=== PATIENT | male | born 1965 | race African-American/Black ===

== ENCOUNTER 2017-08-28 09:41 | Inpatient (IN) | payer MEDICAID ==
--- NOTE | 2017-08-28 10:01 | ED Physician Chart ---
ED Chief Complaint/HPI - Patient Information Date Seen:: 08/28/17 Time Seen:: 10:00 Chief Complaint:: Seizure History of Present Illness:: 52 yo male was brought from [facility] to ER for evaluation of multiple seizures 13 times this morning. Patient received Versed 5mg IM prior to arrival. Patient was obtunded and non-verbal at ER. ED Review of Systems - Review of Systems Other: Review of systems was not obtainable as patient was obtunded and non- verbal. ED Past Medical History - Past Medical History Past Medical History: HTN, PUD/GERD, Seizures, Other (Peripheral vascular disease, blindness, cataracts, ESBL, MRSA, sleep disorder) Social History: Non Smoker, No Alcohol, No Drug Use Surgical History: Pacemaker Psychiatricy History: Depression ED Physical Exam - Physical Examination Other Gen/Cons comments:: Obtunded Head: Atraumatic Eyes: PERRL Skin: No ecchymosis ENMT: Nasal exam nl Neck: No nuchal rigidity Respiratory: No Wheeze/Rhonchi/Rales Cardio Vascular: RRR, No murmur, gallop, rubs, NL S1 S2 GI: No tenderness/rebounding/guarding Extremities: No edema Other Neuro/Psych comments:: Bilateral patellar reflex 2+ ED Labs/Radiology/EKG Results - Lab Results Results: Laboratory Last Values WBC 7.2 Th/cmm (4.8-10.8) 08/28/17 10:40 RBC 5.17 Mil/cmm (4.30-5.70) 08/28/17 10:40 Hgb 15.4 gm/dL (12-16) 08/28/17 10:40 Hct 46.6 % (41.0-60) 08/28/17 10:40 MCV 90.1 fl (80-99) 08/28/17 10:40 MCH 29.7 pg (26.0-30.0) 08/28/17 10:40 MCHC Differential 33.0 pg (28.0-36.0) 08/28/17 10:40 RDW 13.7 % (11.5-20.0) 08/28/17 10:40 Plt Count 142 Th/cmm (150-400) L 08/28/17 10:40 MPV 8.2 fl 08/28/17 10:40 Neutrophils % 75.2 % (40.0-80.0) 08/28/17 10:40 Lymphocytes % 9.1 % (20.0-50.0) L 08/28/17 10:40 Monocytes % 11.8 % (2.0-10.0) H 08/28/17 10:40 Eosinophils % 3.9 % (0.0-5.0) 08/28/17 10:40 Basophils % 0.0 % (0.0-2.0) 08/28/17 10:40 PT 12.7 SECONDS (9.5-11.5) H 08/28/17 10:40 INR 1.21 (0.5-1.4) 08/28/17 10:40 PTT (Actin FS) 23.6 SECONDS (26.0-38.0) L 08/28/17 10:40 D-Dimer 251 ng/mL (100-400) 08/28/17 10:40 Sodium 137 mEq/L (136-145) 08/28/17 10:40 Potassium 3.3 mEq/L (3.5-5.1) L 08/28/17 10:40 Chloride 110 mEq/L (98-107) H 08/28/17 10:40 Carbon Dioxide 20.2 mEq/L (21.0-31.0) L 08/28/17 10:40 Anion Gap 10.1 (7.0-16.0) 08/28/17 10:40 BUN 13 mg/dL (7-25) 08/28/17 10:40 Creatinine 1.0 mg/dL (0.7-1.3) 08/28/17 10:40 Est GFR ( Amer) > 60.0 ml/min (>90) 08/28/17 10:40 Est GFR (Non-Af Amer) > 60.0 ml/min 08/28/17 10:40 BUN/Creatinine Ratio 13.0 08/28/17 10:40 Glucose 115 mg/dL (70-105) H 08/28/17 10:40 Calcium 9.5 mg/dL (8.6-10.3) 08/28/17 10:40 Total Bilirubin 0.3 mg/dL (0.3-1.0) 08/28/17 10:40 AST 17 U/L (13-39) 08/28/17 10:40 ALT 29 U/L (7-52) 08/28/17 10:40 Alkaline Phosphatase 140 U/L (34-104) H 08/28/17 10:40 Troponin I 0.01 ng/mL (0.01-0.05) 08/28/17 10:40 B-Natriuretic Peptide 17.3 pg/mL (5.0-100.0) 08/28/17 10:40 Total Protein 7.8 gm/dL (6.0-8.3) 08/28/17 10:40 Albumin 4.3 gm/dL (4.2-5.5) 08/28/17 10:40 Globulin 3.5 gm/dL 08/28/17 10:40 Albumin/Globulin Ratio 1.2 (1.0-1.8) 08/28/17 10:40 Lipase 42 U/L (11-82) 08/28/17 10:40 Phenytoin < 2.5 ug/ml (10.0-20.0) L 08/28/17 10:48 Valproic Acid < 10.0 ug/mL (50.0-100.0) L 08/28/17 10:40 - Radiology Results Results: CXR: no focal consolidation, pacemaker CT head: No acute abnormalities. Left frontal encephalomalacia - EKG Interpretations EKG Time:: 10:09 Rate & Rhythm: 83 bpm, sinus rhythm [place]: normal P axis Intervals: normal intervals Comments:: non-specific ST changes ED Assessment - Assessment General Assessment: Seizures Hypokalemia Assessment/Comments:: CBC, CMP, UA CXR, EKG CT head KCL 20 mEq IV NS 1L IV bolus Admit to telemetry ED Septic Shock - . Is Septic Shock (SBP<90, OR Lactate>4 mmol\L) present?: No ED Reassessment (Disposition) - Reassessment Reassessment Condition:: Improved - Patient Disposition Discharge/Transfer:: Acute Care w/in this hosp Admitting Medical Physician:: David Davila ED Discharge Plan - Patient Disposition Admit/Discharge/Transfer: Acute Care w/in this hosp Condition at Disposition: Stable
[2017-08-28 10:47] LABS: EOSINOPHILE ABSOLUTE 0.3 Th/cmm (0.1-0.4); MEAN PLATELET VOLUME 8.2 fl
[2017-08-28 10:50] LABS: % EOSINOPHILS 3.9 % (0.0-5.0); % LYMPHOCYTES 9.1 % (20.0-50.0); % MONOCYTES 11.8 % (2.0-10.0); % NEUTROPHILS 75.2 % (40.0-80.0); HEMATOCRIT 46.6 % (41.0-60); HEMOGLOBIN 15.4 gm/dL (12-16); LYMPHOCYTE ABSOLUTE 0.7 Th/cmm (1.5-3.0); MEAN CELL VOLUME 90.1 fl (80-99); MEAN CORPUSCULAR HEMOGLOBIN 29.7 pg (26.0-30.0); MONOCYTE ABSOLUTE 0.8 Th/cmm (0.3-1.0); NEUTROPHILE ABSOLUTE 5.4 Th/cmm (1.8-8.0); PLATELET COUNT 142 Th/cmm (150-400); RED BLOOD COUNT 5.17 Mil/cmm (4.30-5.70); RED CELL DISTRIBUTION WIDTH 13.7 % (11.5-20.0); WHITE BLOOD COUNT 7.2 Th/cmm (4.8-10.8)
[2017-08-28 11:03] LABS: INR 1.21 (0.5-1.4); PROTHROMBIN TIME (TEST) 12.7 SECONDS (9.5-11.5)
[2017-08-28 11:09] LABS: ALB/GLOB RATIO 1.2 (1.0-1.8); ALBUMIN 4.3 gm/dL (4.2-5.5); ALKALINE PHOSPHATASE 140 U/L (34-104); ANION GAP 10.1 (7.0-16.0); BILIRUBIN,TOTAL 0.3 mg/dL (0.3-1.0); BUN - UREA NITROGEN 13 mg/dL (7-25); CALCIUM SERUM 9.5 mg/dL (8.6-10.3); CARBON DIOXIDE 20.2 mEq/L (21.0-31.0); CHLORIDE 110 mEq/L (98-107); GFR AFRICAN-AMERICAN > 60.0 ml/min (>90); GFR NON AFRICAN-AMERICAN > 60.0 ml/min; GLUCOSE 115 mg/dL (70-105); LIPASE 42 U/L (11-82); POTASSIUM SERUM 3.3 mEq/L (3.5-5.1); SGOT 17 U/L (13-39); SGPT/ALT 29 U/L (7-52); SODIUM SERUM 137 mEq/L (136-145); TOTAL PROTEIN,SERUM 7.8 gm/dL (6.0-8.3)
[2017-08-28] MEDS ORDERED: Sodium Chloride 0.9% 1,000 ML IV ONE (11:24)
[2017-08-28] MEDS ORDERED: KCL 20mEq/100mL Premix 20 MEQ/100 ML PIGGYBACK IV ONE ×2 (11:28→11:41)
--- NOTE | 2017-08-28 11:37 | Diagnostic Imaging Report ---
Portable chest x-ray History: Shortness of breath Allowing for portable technique the heart size is normal. Cardiac electrode lead wires project over the right atrium and right ventricle. No focal pulmonary parenchymal processes. No hilar or mediastinal abnormalities. Impression: No acute abnormalities.
--- NOTE | 2017-08-28 11:37 | Diagnostic Imaging Report ---
CT scan of the brain without intravenous contrast HISTORY: Seizure. Total DLP equals 714 CTDI equals 37.6 Axial sections were obtained from base of skull the vertex. Prior exams are not available for comparison. The exam demonstrates asymmetric abnormal changes involving the contours of the posterior horns of lateral ventricles associated with volume loss. Symmetric extra-axial CSF extends from the margins of the occipital horns through the right and left temporal areas. Findings consistent with changes of porencephaly. 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 Extensive calcification noted along the falx. Prosthetic left eye. IMPRESSION: 1. Chronic changes as described above. 2. No definite acute abnormalities
[2017-08-28] MEDS ORDERED: Magnesium Hydroxide (MOM) 30 mL UDC PO PRN (12:46)
[2017-08-28] MEDS ORDERED: Fleet Enema 135 mL RC PRN ×2 (12:46→14:15)
--- NOTE | 2017-08-28 14:05 | History & Physical ---
ADMIT DATE: 08/28/2017 INTERNAL MEDICINE HISTORY AND PHYSICAL CHIEF COMPLAINT: Uncontrolled seizures. HISTORY OF PRESENT ILLNESS: This is a 52-year-old male with a history of mental retardation, seizure disorder, hypertension, GERD, admitted from a nursing facility secondary to uncontrolled seizure x 13. The patient was given Versed by paramedics and brought to the Emergency Room. The patient is sleepy, unable to provide a meaningful history and review of systems. PAST MEDICAL HISTORY: As mentioned in history of present illness. PAST SURGICAL HISTORY: Status post pacemaker, left eye surgery. ALLERGIES: No known drug allergies. MEDICATIONS: Calcium, Norvasc, Colace, Megace, Zoloft, Topamax, Keppra. FAMILY HISTORY: Noncontributory. SOCIAL HISTORY: The patient is a long-term patient requiring 24-hour total care. REVIEW OF SYSTEMS: This is limited secondary to the patient's current mental status. We will try to obtain more detailed review of systems today by talking to the family members. We will also try to get more information from the casework supervisor from the [facility] as well as from nursing staff at [facility] [phone]. PHYSICAL EXAMINATION: VITAL SIGNS: Blood pressure 120/68, respirations 18, pulse 126, temperature 98.3. GENERAL: Elderly male, appears chronically ill. NECK: Supple. No mass. LUNGS: Equal breath sounds, a few rhonchi. HEART: Regular rate and rhythm without systolic ejection murmur. ABDOMEN: Soft, globular. EXTREMITIES: Positive excoriations. NEUROLOGIC: Limited. LABORATORY DATA: WBC 7, hemoglobin 15, platelets 142. INR 1.2, PTT 23. Sodium 137, potassium 4.2, BUN 34, creatinine 1.0, blood sugar 115. Keppra level is pending. ASSESSMENT AND PLAN: Uncontrolled seizure, hypertension, mental retardation, debilitation, bedridden, hypokalemia. PLAN: Continue the patient ____ medication. Continue on IV push Ativan on an as needed basis. We will refer the patient to Neurology. We will perform swallow evaluation. We will place the patient on aspiration precautions. We will reconcile the patient's medication. The patient is also on Topamax. Continue with current care with follow consult and recommendations. JOB# [id number]
[2017-08-28] MEDS: D5-0.45NS 1,000 ML IV SCH (18:38)
[2017-08-28] MEDS: Docusate Sodium 100 mg/10 mL UD PO SCH ×2 (18:57→20:15)
[2017-08-28] MEDS: Levetiracetam 500 mg/5mL 5mL UDSyr *for ORAL USE ONLY PO SCH (20:15)
[2017-08-29] MEDS: D5-0.45NS 1,000 ML IV SCH ×2 (06:11→18:12)
[2017-08-29] MEDS: Pantoprazole 40 mg/Packet PO SCH (06:49)
[2017-08-29 07:26] LABS: HEMOGLOBIN 14.5 gm/dL (12-16); MANUAL DIFF REQUIRED? YES; RED CELL DISTRIBUTION WIDTH 13.6 % (11.5-20.0)
[2017-08-29 07:41] LABS: HEMATOCRIT 45.1 % (41.0-60); MEAN CELL VOLUME 90.7 fl (80-99); MEAN CORPUSCULAR HEMOGLOBIN 29.3 pg (26.0-30.0); MEAN CORPUSCULAR HGB CONC 32.3 pg (28.0-36.0); MEAN PLATELET VOLUME 8.2 fl; PLATELET COUNT 158 Th/cmm (150-400); RED BLOOD COUNT 4.97 Mil/cmm (4.30-5.70); WHITE BLOOD COUNT 5.2 Th/cmm (4.8-10.8)
[2017-08-29 07:58] LABS: BAND NEUTROPHILE 0 % (0-10); BASOPHIL 0 % (0-3); EOSINOPHIL 7 % (0-5); LYMPHOCYTE 27 % (20-50); MONOCYTE 16 % (2-10); NEUTROPHILS 50 % (40-80); TOTAL CELLS COUNTED 100
[2017-08-29] MEDS: Multivitamin Tab PO SCH (08:24)
[2017-08-29] MEDS: Levetiracetam 500 mg/5mL 5mL UDSyr *for ORAL USE ONLY PO SCH ×2 (08:25→20:27)
[2017-08-29] MEDS: Docusate Sodium 100 mg/10 mL UD PO SCH ×2 (08:25→17:05)
[2017-08-29 09:55] LABS: ANION GAP 9.1 (7.0-16.0); BUN - UREA NITROGEN 8 mg/dL (7-25); CALCIUM SERUM 9.2 mg/dL (8.6-10.3); CARBON DIOXIDE 19.1 mEq/L (21.0-31.0); CHLORIDE 113 mEq/L (98-107); CREATININE - SERUM 0.8 mg/dL (0.7-1.3); GFR AFRICAN-AMERICAN > 60.0 ml/min (>90); GFR NON AFRICAN-AMERICAN > 60.0 ml/min; GLUCOSE 106 mg/dL (70-105); POTASSIUM SERUM 3.2 mEq/L (3.5-5.1); SODIUM SERUM 138 mEq/L (136-145)
--- NOTE | 2017-08-29 14:14 | Internal Medicine Prog Note ---
Internal Medicine Subjective - Subjective Service Date: 08/29/17 (left eye noted with yellowish drainage) Patient seen and examined:: with staff Patient is:: awake Per staff patient has:: tolerating meds Internal Medicine Objective - Results Result Diagrams: 08/29/17 07:15 08/29/17 09:19 Recent Labs: Laboratory Last Values WBC 5.2 Th/cmm (4.8-10.8) 08/29/17 07:15 RBC 4.97 Mil/cmm (4.30-5.70) 08/29/17 07:15 Hgb 14.5 gm/dL (12-16) 08/29/17 07:15 Hct 45.1 % (41.0-60) 08/29/17 07:15 MCV 90.7 fl (80-99) 08/29/17 07:15 MCH 29.3 pg (26.0-30.0) 08/29/17 07:15 MCHC Differential 32.3 pg (28.0-36.0) 08/29/17 07:15 RDW 13.6 % (11.5-20.0) 08/29/17 07:15 Plt Count 158 Th/cmm (150-400) 08/29/17 07:15 MPV 8.2 fl 08/29/17 07:15 Neutrophils % 75.2 % (40.0-80.0) 08/28/17 10:40 Band Neutrophils % 0 % (0-10) 08/29/17 07:15 Lymphocytes % 9.1 % (20.0-50.0) L 08/28/17 10:40 Monocytes % 11.8 % (2.0-10.0) H 08/28/17 10:40 Eosinophils % 3.9 % (0.0-5.0) 08/28/17 10:40 Basophils % 0.0 % (0.0-2.0) 08/28/17 10:40 Neutrophils (Manual) 50 % (40-80) 08/29/17 07:15 Lymphocytes 27 % (20-50) 08/29/17 07:15 Monocytes 16 % (2-10) H 08/29/17 07:15 Eosinophils 7 % (0-5) H 08/29/17 07:15 Basophils 0 % (0-3) 08/29/17 07:15 PT 12.7 SECONDS (9.5-11.5) H 08/28/17 10:40 INR 1.21 (0.5-1.4) 08/28/17 10:40 PTT (Actin FS) 23.6 SECONDS (26.0-38.0) L 08/28/17 10:40 D-Dimer 251 ng/mL (100-400) 08/28/17 10:40 Sodium 138 mEq/L (136-145) 08/29/17 09:19 Potassium 3.2 mEq/L (3.5-5.1) L 08/29/17 09:19 Chloride 113 mEq/L (98-107) H 08/29/17 09:19 Carbon Dioxide 19.1 mEq/L (21.0-31.0) L 08/29/17 09:19 Anion Gap 9.1 (7.0-16.0) 08/29/17 09:19 BUN 8 mg/dL (7-25) 08/29/17 09:19 Creatinine 0.8 mg/dL (0.7-1.3) 08/29/17 09:19 Est GFR ( Amer) > 60.0 ml/min (>90) 08/29/17 09:19 Est GFR (Non-Af Amer) > 60.0 ml/min 08/29/17 09:19 BUN/Creatinine Ratio 10.0 08/29/17 09:19 Glucose 106 mg/dL (70-105) H 08/29/17 09:19 Calcium 9.2 mg/dL (8.6-10.3) 08/29/17 09:19 Magnesium 2.0 mg/dL (1.9-2.7) 08/29/17 09:19 Total Bilirubin 0.3 mg/dL (0.3-1.0) 08/28/17 10:40 AST 17 U/L (13-39) 08/28/17 10:40 ALT 29 U/L (7-52) 08/28/17 10:40 Alkaline Phosphatase 140 U/L (34-104) H 08/28/17 10:40 Ammonia 55 umol/L (16-53) H 08/29/17 09:19 Troponin I 0.01 ng/mL (0.01-0.05) 08/28/17 10:40 B-Natriuretic Peptide 17.3 pg/mL (5.0-100.0) 08/28/17 10:40 Total Protein 7.8 gm/dL (6.0-8.3) 08/28/17 10:40 Albumin 4.3 gm/dL (4.2-5.5) 08/28/17 10:40 Globulin 3.5 gm/dL 08/28/17 10:40 Albumin/Globulin Ratio 1.2 (1.0-1.8) 08/28/17 10:40 Lipase 42 U/L (11-82) 08/28/17 10:40 Phenytoin < 2.5 ug/ml (10.0-20.0) L 08/28/17 10:48 Valproic Acid < 10.0 ug/mL (50.0-100.0) L 08/28/17 10:40 - Physical Exam Vitals and I&O: Vital Signs Temp 96.3 F 08/29/17 11:35 Pulse 64 08/29/17 11:35 Resp 18 08/29/17 11:35 BP 120/65 08/29/17 11:35 Pulse Ox 98 08/29/17 11:35 Intake & Output 08/28/17 08/29/17 08/29/17 18:59 06:59 18:59 Intake Total 1100 924 Balance 1100 924 Weight (lbs) 140 lb 140 lb Intake: Intake, IV Amount 1100 924 D5-0.45NS 1,000 ml @ 80 924 mls/hr IV .[id number] [facility] Rx #:[id number] KCL 20mEq/100mL Premix 20 100 meq In 100 ml @ 50 mls/ hr IV X1 ONE Rx#: [id number] Other: # Voids 2 # Bowel Movements 1 Weight Source Bedscale Bedscale Active Medications: Current Medications Acetaminophen (Tylenol) 650 mg PO Q4HR PRN PRN Reason: Pain (Mild) Stop: 10/27/17 12:45 Amlodipine Besylate (Norvasc) 10 mg PO DAILY [facility] Stop: 10/28/17 08:59 Last Admin: 08/29/17 08:24 Dose: 10 mg Bisacodyl (Dulcolax 10 Mg Supp) 10 mg RC Q3D PRN PRN Reason: Constipation Stop: 10/28/17 08:59 Calcium Carbonate (Os-Isaac) 500 mg PO BID [facility] Stop: 10/27/17 16:59 Last Admin: 08/29/17 08:24 Dose: 500 mg Docusate Sodium (Colace) 100 mg PO BID [facility] Stop: 10/27/17 16:59 Last Admin: 08/29/17 08:25 Dose: 100 mg Heparin Sodium (Porcine) (Heparin) 5,000 units SUBQ Q12HR ANNA Stop: 10/27/17 20:59 Last Admin: 08/29/17 08:31 Dose: 5,000 units Hydralazine HCl (Apresoline) 25 mg PO 0000,0800,2000 [facility] Stop: 10/27/17 19:59 Last Admin: 08/29/17 08:24 Dose: 25 mg Dextrose/Sodium Chloride (D5-0.45ns) 1,000 mls @ 80 mls/hr IV .[id number] [facility] Stop: 10/27/17 12:59 Last Admin: 08/29/17 06:11 Dose: 80 mls/hr Levetiracetam (Keppra) 1,500 mg PO Q12HR [facility] Stop: 10/27/17 20:59 Last Admin: 08/29/17 08:25 Dose: 1,500 mg Lorazepam (Ativan) 1 mg IV Q4H PRN; Protocol PRN Reason: Seizure Stop: 10/27/17 12:46 Magnesium Hydroxide (Milk Of Magnesia) 30 ml PO Q3D PRN PRN Reason: Constipation Stop: 10/27/17 12:45 Megestrol Acetate (Megace) 40 mg PO DAILY [facility]; Protocol Stop: 10/28/17 08:59 Last Admin: 08/29/17 08:24 Dose: 40 mg Multivitamins/Vitamin C (Theragran) 1 tab PO QAM [facility] Stop: 10/28/17 08:59 Last Admin: 08/29/17 08:24 Dose: 1 tab Ondansetron HCl (Zofran) 4 mg IV Q8H PRN PRN Reason: Nausea / Vomiting Stop: 10/27/17 12:46 Pantoprazole Sodium (Protonix) 40 mg PO QDAC [facility] Stop: 10/28/17 07:29 Last Admin: 08/29/17 06:49 Dose: 40 mg Sertraline HCl (Zoloft) 50 mg PO QAM [facility]; Protocol Stop: 10/28/17 08:59 Sodium Phosphate (Fleet Enema) 135 ml RC Q3D PRN PRN Reason: Constipation Stop: 10/27/17 12:45 Topiramate (Topamax) 25 mg PO BID [facility] Stop: 10/27/17 16:59 Last Admin: 08/29/17 08:24 Dose: 25 mg Vitamin D (Vitamin D) 400 iu PO QAM [facility] Stop: 10/28/17 08:59 Last Admin: 08/29/17 08:24 Dose: 400 iu General: weak HEENT: NC/AT, PERRLA Neck: Supple Lungs: CTAB Cardiovascular: RRR, Normal S1, Normal S2, without murmur Abdomen: soft, non-tender, non-distended Neurological: unable to follow command Internal Medicine Assmt/Plan - Assessment Assessment: uncontrolled seizure htn mr debilitation bedridden acute left eye conjunctivitis hypokalemia - Plan Plan: seizure precautions will add cipro eye gtts cbc/bmp in am continue current plan of care
[2017-08-30 05:31] LABS: URINE MICROSCOPIC INDICATED? YES; URINE SOURCE RANDOM
[2017-08-30 05:33] LABS: URINE BILIRUBIN NEGATIVE (NEGATIVE); URINE BLOOD TRACE (NEGATIVE); URINE GLUCOSE (UA) NEGATIVE (NEGATIVE); URINE KETONE NEGATIVE (NEGATIVE); URINE LEUKOCYTE ESTERASE SMALL (NEGATIVE); URINE NITRATE NEGATIVE (NEGATIVE); URINE PROTEIN NEGATIVE (NEGATIVE); URINE UROBILINOGEN 0.2 E.U./dL (0.2 - 1.0)
[2017-08-30 05:45] LABS: URINE CLARITY CLEAR (CLEAR); URINE COLOR YELLOW
[2017-08-30 05:48] LABS: URINE EPITHELIAL CELLS OCCASIONAL /lpf (FEW); URINE RBC 0-2 /hpf (0-5); URINE WBC 0-2 /hpf (0-5)
[2017-08-30 05:49] LABS: URINE BACTERIA FEW /hpf (NONE SEEN)
[2017-08-30] MEDS: Pantoprazole 40 mg/Packet PO SCH (06:48)
[2017-08-30] MEDS: D5-0.45NS 1,000 ML IV SCH ×2 (06:51→16:51)
[2017-08-30 07:56] LABS: MANUAL DIFF REQUIRED? YES
[2017-08-30 08:01] LABS: HEMOGLOBIN 13.9 gm/dL (12-16); MEAN CELL VOLUME 89.9 fl (80-99); MEAN CORPUSCULAR HEMOGLOBIN 30.5 pg (26.0-30.0); MEAN PLATELET VOLUME 7.6 fl; PLATELET COUNT 230 Th/cmm (150-400); RED BLOOD COUNT 4.57 Mil/cmm (4.30-5.70); RED CELL DISTRIBUTION WIDTH 13.4 % (11.5-20.0); WHITE BLOOD COUNT 4.6 Th/cmm (4.8-10.8)
[2017-08-30 08:04] LABS: ANION GAP 10.5 (7.0-16.0); BUN - UREA NITROGEN 6 mg/dL (7-25); CALCIUM SERUM 9.3 mg/dL (8.6-10.3); CARBON DIOXIDE 18.9 mEq/L (21.0-31.0); CHLORIDE 115 mEq/L (98-107); CREATININE - SERUM 0.9 mg/dL (0.7-1.3); GFR AFRICAN-AMERICAN > 60.0 ml/min (>90); GFR NON AFRICAN-AMERICAN > 60.0 ml/min; GLUCOSE 101 mg/dL (70-105); POTASSIUM SERUM 3.4 mEq/L (3.5-5.1); SODIUM SERUM 141 mEq/L (136-145)
[2017-08-30] MEDS: Levetiracetam 500 mg/5mL 5mL UDSyr *for ORAL USE ONLY PO SCH ×2 (08:20→21:24)
[2017-08-30] MEDS: Multivitamin Tab PO SCH (08:21)
[2017-08-30] MEDS: Docusate Sodium 100 mg/10 mL UD PO SCH ×2 (08:21→16:40)
[2017-08-30 08:31] LABS: BAND NEUTROPHILE 0 % (0-10); BASOPHIL 0 % (0-3); EOSINOPHIL 6 % (0-5); LYMPHOCYTE 30 % (20-50); MONOCYTE 19 % (2-10); NEUTROPHILS 45 % (40-80); PLATELET ESTIMATE ADEQUATE (NORMAL); TOTAL CELLS COUNTED 100
[2017-08-30] MEDS ORDERED: Potassium Chloride 20 mEq ER Tab PO ONE (16:27)
--- NOTE | 2017-08-30 16:27 | Internal Medicine Prog Note ---
Internal Medicine Subjective - Subjective Service Date: 08/30/17 Patient seen and examined:: with staff Patient is:: awake, non-interactive, stares blankly Per staff patient has:: tolerating meds Internal Medicine Objective - Results Result Diagrams: 08/30/17 07:39 08/30/17 07:39 Recent Labs: Laboratory Last Values WBC 4.6 Th/cmm (4.8-10.8) L 08/30/17 07:39 RBC 4.57 Mil/cmm (4.30-5.70) 08/30/17 07:39 Hgb 13.9 gm/dL (12-16) 08/30/17 07:39 Hct 41.0 % (41.0-60) 08/30/17 07:39 MCV 89.9 fl (80-99) 08/30/17 07:39 MCH 30.5 pg (26.0-30.0) H 08/30/17 07:39 MCHC Differential 34.0 pg (28.0-36.0) 08/30/17 07:39 RDW 13.4 % (11.5-20.0) 08/30/17 07:39 Plt Count 230 Th/cmm (150-400) 08/30/17 07:39 MPV 7.6 fl 08/30/17 07:39 Neutrophils % 75.2 % (40.0-80.0) 08/28/17 10:40 Band Neutrophils % 0 % (0-10) 08/30/17 07:39 Lymphocytes % 9.1 % (20.0-50.0) L 08/28/17 10:40 Monocytes % 11.8 % (2.0-10.0) H 08/28/17 10:40 Eosinophils % 3.9 % (0.0-5.0) 08/28/17 10:40 Basophils % 0.0 % (0.0-2.0) 08/28/17 10:40 Neutrophils (Manual) 45 % (40-80) 08/30/17 07:39 Lymphocytes 30 % (20-50) 08/30/17 07:39 Monocytes 19 % (2-10) H 08/30/17 07:39 Eosinophils 6 % (0-5) H 08/30/17 07:39 Basophils 0 % (0-3) 08/30/17 07:39 Platelet Estimate ADEQUATE (NORMAL) 08/30/17 07:39 PT 12.7 SECONDS (9.5-11.5) H 08/28/17 10:40 INR 1.21 (0.5-1.4) 08/28/17 10:40 PTT (Actin FS) 23.6 SECONDS (26.0-38.0) L 08/28/17 10:40 D-Dimer 251 ng/mL (100-400) 08/28/17 10:40 Sodium 141 mEq/L (136-145) 08/30/17 07:39 Potassium 3.4 mEq/L (3.5-5.1) L 08/30/17 07:39 Chloride 115 mEq/L (98-107) H 08/30/17 07:39 Carbon Dioxide 18.9 mEq/L (21.0-31.0) L 08/30/17 07:39 Anion Gap 10.5 (7.0-16.0) 08/30/17 07:39 BUN 6 mg/dL (7-25) L 08/30/17 07:39 Creatinine 0.9 mg/dL (0.7-1.3) 08/30/17 07:39 Est GFR ( Amer) > 60.0 ml/min (>90) 08/30/17 07:39 Est GFR (Non-Af Amer) > 60.0 ml/min 08/30/17 07:39 BUN/Creatinine Ratio 6.7 08/30/17 07:39 Glucose 101 mg/dL (70-105) 08/30/17 07:39 Calcium 9.3 mg/dL (8.6-10.3) 08/30/17 07:39 Magnesium 2.0 mg/dL (1.9-2.7) 08/29/17 09:19 Total Bilirubin 0.3 mg/dL (0.3-1.0) 08/28/17 10:40 AST 17 U/L (13-39) 08/28/17 10:40 ALT 29 U/L (7-52) 08/28/17 10:40 Alkaline Phosphatase 140 U/L (34-104) H 08/28/17 10:40 Ammonia 55 umol/L (16-53) H 08/29/17 09:19 Troponin I 0.01 ng/mL (0.01-0.05) 08/28/17 10:40 B-Natriuretic Peptide 17.3 pg/mL (5.0-100.0) 08/28/17 10:40 Total Protein 7.8 gm/dL (6.0-8.3) 08/28/17 10:40 Albumin 4.3 gm/dL (4.2-5.5) 08/28/17 10:40 Globulin 3.5 gm/dL 08/28/17 10:40 Albumin/Globulin Ratio 1.2 (1.0-1.8) 08/28/17 10:40 Lipase 42 U/L (11-82) 08/28/17 10:40 Urine Source RANDOM 08/30/17 05:00 Urine Color YELLOW 08/30/17 05:00 Urine Clarity CLEAR (CLEAR) 08/30/17 05:00 Urine pH 6.0 (4.6 - 8.0) 08/30/17 05:00 Ur Specific [place] <= 1.005 (1.005-1.030) 08/30/17 05:00 Urine Protein NEGATIVE mg/dL (NEGATIVE) 08/30/17 05:00 Urine Glucose (UA) NEGATIVE mg/dL (NEGATIVE) 08/30/17 05:00 Urine Ketones NEGATIVE mg/dL (NEGATIVE) 08/30/17 05:00 Urine Blood TRACE (NEGATIVE) 08/30/17 05:00 Urine Nitrate NEGATIVE (NEGATIVE) 08/30/17 05:00 Urine Bilirubin NEGATIVE (NEGATIVE) 08/30/17 05:00 Urine Urobilinogen 0.2 E.U./dL (0.2 - 1.0) 08/30/17 05:00 Ur Leukocyte Esterase SMALL (NEGATIVE) H 08/30/17 05:00 Urine RBC 0-2 /hpf (0-5) H 08/30/17 05:00 Urine WBC 0-2 /hpf (0-5) 08/30/17 05:00 Ur Epithelial Cells OCCASIONAL /lpf (FEW) 08/30/17 05:00 Urine Bacteria FEW /hpf (NONE SEEN) 08/30/17 05:00 Phenytoin < 2.5 ug/ml (10.0-20.0) L 08/28/17 10:48 Valproic Acid < 10.0 ug/mL (50.0-100.0) L 08/28/17 10:40 - Physical Exam Vitals and I&O: Vital Signs Temp 97.1 F 08/30/17 11:57 Pulse 69 08/30/17 11:57 Resp 18 08/30/17 11:57 BP 126/82 08/30/17 11:57 Pulse Ox 100 08/30/17 11:57 Intake & Output 08/29/17 08/30/17 08/30/17 18:59 06:59 18:59 Intake Total 192.000 4989 Balance 019.952 9773 Weight (lbs) 139 lb 3.2 oz Intake: Intake, IV Amount 218.852 4406 D5-0.45NS 1,000 ml @ 80 781.280 1204 mls/hr IV .[id number] [facility] Rx #:[id number] Oral 50 Other: # Voids 2 # Bowel Movements 0 Weight Source Bedscale Active Medications: Current Medications Acetaminophen (Tylenol) 650 mg PO Q4HR PRN PRN Reason: Pain (Mild) Stop: 10/27/17 12:45 Amlodipine Besylate (Norvasc) 10 mg PO DAILY [facility] Stop: 10/28/17 08:59 Last Admin: 08/30/17 08:22 Dose: 10 mg Bisacodyl (Dulcolax 10 Mg Supp) 10 mg RC Q3D PRN PRN Reason: Constipation Stop: 10/28/17 08:59 Calcium Carbonate (Os-Isaac) 500 mg PO BID [facility] Stop: 10/27/17 16:59 Last Admin: 08/30/17 08:22 Dose: 500 mg Ciprofloxacin (Cipro 0.3% [facility]) 1 drop LEFT EYE Q6H [facility] Stop: 10/28/17 14:14 Last Admin: 08/30/17 14:03 Dose: 1 drop Docusate Sodium (Colace) 100 mg PO BID [facility] Stop: 10/27/17 16:59 Last Admin: 08/30/17 08:21 Dose: 100 mg Heparin Sodium (Porcine) (Heparin) 5,000 units SUBQ Q12HR [facility] Stop: 10/27/17 20:59 Last Admin: 08/30/17 08:22 Dose: 5,000 units Hydralazine HCl (Apresoline) 25 mg PO 0000,0800,2000 [facility] Stop: 10/27/17 19:59 Last Admin: 08/30/17 08:21 Dose: 25 mg Dextrose/Sodium Chloride (D5-0.45ns) 1,000 mls @ 80 mls/hr IV .[id number] [facility] Stop: 10/27/17 12:59 Last Admin: 08/30/17 06:51 Dose: 80 mls/hr Levetiracetam (Keppra) 1,500 mg PO Q12HR [facility] Stop: 10/27/17 20:59 Last Admin: 08/30/17 08:20 Dose: 1,500 mg Lorazepam (Ativan) 1 mg IV Q4H PRN; Protocol PRN Reason: Seizure Stop: 10/27/17 12:46 Magnesium Hydroxide (Milk Of Magnesia) 30 ml PO Q3D PRN PRN Reason: Constipation Stop: 10/27/17 12:45 Megestrol Acetate (Megace) 40 mg PO DAILY [facility]; Protocol Stop: 10/28/17 08:59 Last Admin: 08/30/17 08:21 Dose: 40 mg [facility]ivitamins/Vitamin [facility] ([facility]) [facility] Stop: 10/28/17 08:59 Last Admin: 08/30/17 08:21 Dose: 1 tab Ondansetron HCl (Zofran) 4 mg IV Q8H PRN PRN Reason: Nausea / Vomiting Stop: 10/27/17 12:46 Pantoprazole Sodium (Protonix) 40 mg PO QDAC [facility] Stop: 10/28/17 07:29 Last Admin: 08/30/17 06:48 Dose: 40 mg Sertraline HCl (Zoloft) [facility]; Protocol Stop: 10/28/17 08:59 Sodium Phosphate (Fleet Enema) 135 ml RC Q3D PRN PRN Reason: Constipation Stop: 10/27/17 12:45 Topiramate (Topamax) 25 mg PO BID [facility] Stop: 10/27/17 16:59 Last Admin: 08/30/17 08:22 Dose: 25 mg Vitamin D (Vitamin D) 400 iu PO QAM [facility] Stop: 10/28/17 08:59 Last Admin: 08/30/17 08:21 Dose: 400 iu General: weak HEENT: NC/AT, PERRLA Neck: Supple Lungs: CTAB Cardiovascular: RRR, Normal S1, Normal S2, without murmur Abdomen: soft, non-tender, non-distended Neurological: unable to follow command Internal Medicine Assmt/Plan - Assessment Assessment: uncontrolled seizure htn mr debilitation bedridden acute left eye conjunctivitis hypokalemia - Plan Plan: seizure precautions cbc/bmp in am continue current plan of care
[2017-08-31 05:19] LABS: % EOSINOPHILS 5.4 % (0.0-5.0); % LYMPHOCYTES 38.8 % (20.0-50.0); % MONOCYTES 8.2 % (2.0-10.0); % NEUTROPHILS 47.6 % (40.0-80.0); EOSINOPHILE ABSOLUTE 0.3 Th/cmm (0.1-0.4); HEMATOCRIT 41.6 % (41.0-60); LYMPHOCYTE ABSOLUTE 2.4 Th/cmm (1.5-3.0); MEAN CELL VOLUME 90.2 fl (80-99); MEAN CORPUSCULAR HEMOGLOBIN 30.3 pg (26.0-30.0); MEAN CORPUSCULAR HGB CONC 33.6 pg (28.0-36.0); MEAN PLATELET VOLUME 7.9 fl; MONOCYTE ABSOLUTE 0.5 Th/cmm (0.3-1.0); PLATELET COUNT 250 Th/cmm (150-400); RED BLOOD COUNT 4.62 Mil/cmm (4.30-5.70); RED CELL DISTRIBUTION WIDTH 13.2 % (11.5-20.0); WHITE BLOOD COUNT 6.2 Th/cmm (4.8-10.8)
[2017-08-31 05:53] LABS: BUN - UREA NITROGEN 8 mg/dL (7-25); CARBON DIOXIDE 19.6 mEq/L (21.0-31.0); CHLORIDE 115 mEq/L (98-107); GLUCOSE 93 mg/dL (70-105); POTASSIUM SERUM 3.6 mEq/L (3.5-5.1); SODIUM SERUM 141 mEq/L (136-145)
[2017-08-31 05:54] LABS: CALCIUM SERUM 9.5 mg/dL (8.6-10.3); GFR AFRICAN-AMERICAN > 60.0 ml/min (>90); GFR NON AFRICAN-AMERICAN > 60.0 ml/min
[2017-08-31] MEDS: Pantoprazole 40 mg/Packet PO SCH (06:59)
[2017-08-31] MEDS: Levetiracetam 500 mg/5mL 5mL UDSyr *for ORAL USE ONLY PO SCH (08:54)
[2017-08-31] MEDS: Docusate Sodium 100 mg/10 mL UD PO SCH ×2 (08:55→16:23)
[2017-08-31] MEDS: Multivitamin Tab PO SCH (08:55)
--- NOTE | 2017-08-31 11:50 | Internal Medicine Prog Note ---
Internal Medicine Subjective - Subjective Service Date: 08/31/17 Patient seen and examined:: with staff Patient is:: awake, non-interactive, stares blankly Per staff patient has:: tolerating meds Internal Medicine Objective - Results Result Diagrams: 08/31/17 04:50 08/31/17 04:50 Recent Labs: Laboratory Last Values WBC 6.2 Th/cmm (4.8-10.8) 08/31/17 04:50 RBC 4.62 Mil/cmm (4.30-5.70) 08/31/17 04:50 Hgb 14.0 gm/dL (12-16) 08/31/17 04:50 Hct 41.6 % (41.0-60) 08/31/17 04:50 MCV 90.2 fl (80-99) 08/31/17 04:50 MCH 30.3 pg (26.0-30.0) H 08/31/17 04:50 MCHC Differential 33.6 pg (28.0-36.0) 08/31/17 04:50 RDW 13.2 % (11.5-20.0) 08/31/17 04:50 Plt Count 250 Th/cmm (150-400) 08/31/17 04:50 MPV 7.9 fl 08/31/17 04:50 Neutrophils % 47.6 % (40.0-80.0) 08/31/17 04:50 Band Neutrophils % 0 % (0-10) 08/30/17 07:39 Lymphocytes % 38.8 % (20.0-50.0) 08/31/17 04:50 Monocytes % 8.2 % (2.0-10.0) 08/31/17 04:50 Eosinophils % 5.4 % (0.0-5.0) H 08/31/17 04:50 Basophils % 0.0 % (0.0-2.0) 08/31/17 04:50 Neutrophils (Manual) 45 % (40-80) 08/30/17 07:39 Lymphocytes 30 % (20-50) 08/30/17 07:39 Monocytes 19 % (2-10) H 08/30/17 07:39 Eosinophils 6 % (0-5) H 08/30/17 07:39 Basophils 0 % (0-3) 08/30/17 07:39 Platelet Estimate ADEQUATE (NORMAL) 08/30/17 07:39 PT 12.7 SECONDS (9.5-11.5) H 08/28/17 10:40 INR 1.21 (0.5-1.4) 08/28/17 10:40 PTT (Actin FS) 23.6 SECONDS (26.0-38.0) L 08/28/17 10:40 D-Dimer 251 ng/mL (100-400) 08/28/17 10:40 Sodium 141 mEq/L (136-145) 08/31/17 04:50 Potassium 3.6 mEq/L (3.5-5.1) 08/31/17 04:50 Chloride 115 mEq/L (98-107) H 08/31/17 04:50 Carbon Dioxide 19.6 mEq/L (21.0-31.0) L 08/31/17 04:50 Anion Gap 10.0 (7.0-16.0) 08/31/17 04:50 BUN 8 mg/dL (7-25) 08/31/17 04:50 Creatinine 1.0 mg/dL (0.7-1.3) 08/31/17 04:50 Est GFR ( Amer) > 60.0 ml/min (>90) 08/31/17 04:50 Est GFR (Non-Af Amer) > 60.0 ml/min 08/31/17 04:50 BUN/Creatinine Ratio 8.0 08/31/17 04:50 Glucose 93 mg/dL (70-105) 08/31/17 04:50 Calcium 9.5 mg/dL (8.6-10.3) 08/31/17 04:50 Magnesium 2.0 mg/dL (1.9-2.7) 08/29/17 09:19 Total Bilirubin 0.3 mg/dL (0.3-1.0) 08/28/17 10:40 AST 17 U/L (13-39) 08/28/17 10:40 ALT 29 U/L (7-52) 08/28/17 10:40 Alkaline Phosphatase 140 U/L (34-104) H 08/28/17 10:40 Ammonia 55 umol/L (16-53) H 08/29/17 09:19 Troponin I 0.01 ng/mL (0.01-0.05) 08/28/17 10:40 B-Natriuretic Peptide 17.3 pg/mL (5.0-100.0) 08/28/17 10:40 Total Protein 7.8 gm/dL (6.0-8.3) 08/28/17 10:40 Albumin 4.3 gm/dL (4.2-5.5) 08/28/17 10:40 Globulin 3.5 gm/dL 08/28/17 10:40 Albumin/Globulin Ratio 1.2 (1.0-1.8) 08/28/17 10:40 Lipase 42 U/L (11-82) 08/28/17 10:40 Urine Source RANDOM 08/30/17 05:00 Urine Color YELLOW 08/30/17 05:00 Urine Clarity CLEAR (CLEAR) 08/30/17 05:00 Urine pH 6.0 (4.6 - 8.0) 08/30/17 05:00 Ur Specific [place] <= 1.005 (1.005-1.030) 08/30/17 05:00 Urine Protein NEGATIVE mg/dL (NEGATIVE) 08/30/17 05:00 Urine Glucose (UA) NEGATIVE mg/dL (NEGATIVE) 08/30/17 05:00 Urine Ketones NEGATIVE mg/dL (NEGATIVE) 08/30/17 05:00 Urine Blood TRACE (NEGATIVE) 08/30/17 05:00 Urine Nitrate NEGATIVE (NEGATIVE) 08/30/17 05:00 Urine Bilirubin NEGATIVE (NEGATIVE) 08/30/17 05:00 Urine Urobilinogen 0.2 E.U./dL (0.2 - 1.0) 08/30/17 05:00 Ur Leukocyte Esterase SMALL (NEGATIVE) H 08/30/17 05:00 Urine RBC 0-2 /hpf (0-5) H 08/30/17 05:00 Urine WBC 0-2 /hpf (0-5) 08/30/17 05:00 Ur Epithelial Cells OCCASIONAL /lpf (FEW) 08/30/17 05:00 Urine Bacteria FEW /hpf (NONE SEEN) 08/30/17 05:00 Phenytoin < 2.5 ug/ml (10.0-20.0) L 08/28/17 10:48 Valproic Acid < 10.0 ug/mL (50.0-100.0) L 08/28/17 10:40 - Physical Exam Vitals and I&O: Vital Signs Temp 96.6 F 08/31/17 08:08 Pulse 76 08/31/17 08:54 Resp 18 08/31/17 11:20 BP 137/76 08/31/17 08:54 Pulse Ox 99 08/31/17 08:08 Intake & Output 08/30/17 08/31/17 08/31/17 18:59 06:59 18:59 Intake Total 1050 100 Balance 1050 100 Weight (lbs) 139 lb 3.2 oz 139 lb 14.4 oz 139 lb 14.4 oz Intake: Intake, IV Amount 800 D5-0.45NS 1,000 ml @ 80 800 mls/hr IV .[id number] [facility] Rx #:[id number] Oral 250 100 Other: # Voids 4 3 # Bowel Movements 0 Weight Source Bedscale Bedscale Bedscale Active Medications: Current Medications Acetaminophen (Tylenol) 650 mg PO Q4HR PRN PRN Reason: Pain (Mild) Stop: 10/27/17 12:45 Amlodipine Besylate (Norvasc) 10 mg PO DAILY [facility] Stop: 10/28/17 08:59 Last Admin: 08/31/17 08:54 Dose: 10 mg Bisacodyl (Dulcolax 10 Mg Supp) 10 mg RC Q3D PRN PRN Reason: Constipation Stop: 10/28/17 08:59 Calcium Carbonate (Os-Isaac) 500 mg PO BID [facility] Stop: 10/27/17 16:59 Last Admin: 08/31/17 08:54 Dose: 500 mg Ciprofloxacin (Cipro 0.3% [facility]) 1 drop LEFT EYE Q6H [facility] Stop: 10/28/17 14:14 Last Admin: 08/31/17 09:00 Dose: 1 drop Docusate Sodium (Colace) 100 mg PO BID [facility] Stop: 10/27/17 16:59 Last Admin: 08/31/17 08:55 Dose: 100 mg Heparin Sodium (Porcine) (Heparin) 5,000 units SUBQ Q12HR [facility] Stop: 10/27/17 20:59 Last Admin: 08/31/17 08:55 Dose: 5,000 units Hydralazine HCl (Apresoline) 25 mg PO 0000,0800,2000 [facility] Stop: 10/27/17 19:59 Last Admin: 08/31/17 08:30 Dose: 25 mg Dextrose/Sodium Chloride (D5-0.45ns) 1,000 mls @ 80 mls/hr IV .[id number] [facility] Stop: 10/27/17 12:59 Last Admin: 08/30/17 16:51 Dose: 80 mls/hr Levetiracetam (Keppra) 1,500 mg PO Q12HR [facility] Stop: 10/27/17 20:59 Last Admin: 08/31/17 08:54 Dose: 500 mg Lorazepam (Ativan) 1 mg IV Q4H PRN; Protocol PRN Reason: Seizure Stop: 10/27/17 12:46 Magnesium Hydroxide (Milk Of Magnesia) 30 ml PO Q3D PRN PRN Reason: Constipation Stop: 10/27/17 12:45 Megestrol Acetate (Megace) 40 mg PO DAILY [facility]; Protocol Stop: 10/28/17 08:59 Last Admin: 08/31/17 08:53 Dose: 40 mg Multivitamins/Vitamin C (Theragran) 1 tab PO [facility] Stop: 10/28/17 08:59 Last Admin: 08/31/17 08:55 Dose: 1 tab Ondansetron HCl (Zofran) 4 mg IV Q8H PRN PRN Reason: Nausea / Vomiting Stop: 10/27/17 12:46 Pantoprazole Sodium (Protonix) 40 mg PO QDAC [facility] Stop: 10/28/17 07:29 Last Admin: 08/31/17 06:59 Dose: 40 mg Sertraline HCl (Zoloft) 50 mg PO [facility]; Protocol Stop: 10/28/17 08:59 Sodium Phosphate (Fleet Enema) 135 ml RC Q3D PRN PRN Reason: Constipation Stop: 10/27/17 12:45 Topiramate (Topamax) 25 mg PO BID [facility] Stop: 10/27/17 16:59 Last Admin: 08/31/17 08:53 Dose: 25 mg Vitamin D (Vitamin D) 400 iu PO QAM [facility] Stop: 10/28/17 08:59 Last Admin: 08/31/17 08:54 Dose: 400 iu General: weak HEENT: NC/AT, PERRLA Neck: Supple Lungs: CTAB Cardiovascular: RRR, Normal S1, Normal S2, without murmur Abdomen: soft, non-tender, non-distended Neurological: unable to follow command Internal Medicine Assmt/Plan - Assessment Assessment: uncontrolled seizure htn mr debilitation bedridden acute left eye conjunctivitis hypokalemia - Plan Plan: seizure precautions cbc/bmp in am continue current plan of care
[2017-09-01 08:11] LABS: FOLIC ACID >20.0 ng/mL (>3.0)
--- NOTE | 2017-09-03 17:28 | Discharge Summary ---
DATE OF DISCHARGE: 08/31/2017 DICTATED FOR: David Davila D.O. DISCHARGE DIAGNOSES: Uncontrolled seizures, which has been stable; hypertension; ____; bedridden; acute left eye conjunctivitis, which has been treated; and hypokalemia. HISTORY OF PRESENT ILLNESS: This is a 52-year-old male who is a resident of [facility], admitted to the telemetry unit for uncontrolled seizure x13 times. The patient was given Versed in by paramedics and brought to the Emergency Room. PHYSICAL EXAMINATION: GENERAL: ____ male, appears chronically ill. HEENT: Head normocephalic, atraumatic. NECK: Supple. No mass. LUNGS: Clear bilaterally. CARDIOVASCULAR: Regular rhythm. ABDOMEN: Soft, nontender. HOSPITAL COURSE: During hospital stay, the patient is stable, the patient was admitted to the telemetry unit. The patient had p.r.n. Ativan and Neurology consultation was done. The patient had a swallow evaluation done as well and the patient passes well the swallow evaluation with pureed diet. The patient did not have any seizure activity during the hospital stay. For this reason, the patient was stable for discharge. CONDITION UPON DISCHARGE: Fair. DISPOSITION: [facility]. JOB# [id number]
== END 2017-08-31 18:15 | DRG 53 ==
LOC: ER 09:41 → TELE 12:10
PROVIDERS: ADMIT Internal Medicine; ATTEND Internal Medicine
DX: G40.909 Epilepsy, unspecified, not intractable, without status epilepticus (principal); R53.2 Functional quadriplegia; E87.6 Hypokalemia; F79 Unspecified intellectual disabilities; I10 Essential (primary) hypertension; H10.32 Unspecified acute conjunctivitis, left eye; K21.9 Gastro-esophageal reflux disease without esophagitis; I73.9 Peripheral vascular disease, unspecified; F32.9 Major depressive disorder, single episode, unspecified; Z74.01 Bed confinement status; Z95.0 Presence of cardiac pacemaker
CPT/HCPCS: 36415-UA; 70450-TC; 71045-TC; 7610; 80048-TC; 80053-TC; 80164-TC; 80185-TC; 80201-90; 80299-90; 81001-TC; 82140-TC; 82607-90; 82746-90; 83690-TC; 83735-TC; 83880-TC; 84484-TC; 85007-TC; 85025-TC; 85027-TC; 85379-TC; 85610-TC; 93005; J1644; J3480; J7030; X3401; Z7610

== ENCOUNTER 2018-04-17 10:12 | Inpatient (IN) | payer MEDICAID ==
[2018-04-17 11:05] LABS: EOSINOPHILE ABSOLUTE 0.2 Th/cmm (0.1-0.4); MEAN CORPUSCULAR HEMOGLOBIN 30.2 pg (26.0-30.0); MONOCYTE ABSOLUTE 0.7 Th/cmm (0.3-1.0)
[2018-04-17 11:07] LABS: % BASOPHILS 0.2 % (0.0-2.0); % EOSINOPHILS 2.7 % (0.0-5.0); % LYMPHOCYTES 13.8 % (20.0-50.0); % MONOCYTES 9.5 % (2.0-10.0); % NEUTROPHILS 73.8 % (40.0-80.0); HEMATOCRIT 46.1 % (41.0-60); HEMOGLOBIN 15.3 gm/dL (12-16); MEAN CORPUSCULAR HGB CONC 33.2 pg (28.0-36.0); MEAN PLATELET VOLUME 7.7 fl; NEUTROPHILE ABSOLUTE 5.4 Th/cmm (1.8-8.0); PLATELET COUNT 280 Th/cmm (150-400); RED BLOOD COUNT 5.07 Mil/cmm (4.30-5.70); RED CELL DISTRIBUTION WIDTH 13.2 % (11.5-20.0); WHITE BLOOD COUNT 7.3 Th/cmm (4.8-10.8)
[2018-04-17 11:15] LABS: INR 1.14 (0.5-1.4); PROTHROMBIN TIME (TEST) 11.8 SECONDS (9.5-11.5)
[2018-04-17 11:19] LABS: ALB/GLOB RATIO 1.2 (1.0-1.8); ALBUMIN 4.3 gm/dL (4.2-5.5); ALKALINE PHOSPHATASE 73 U/L (34-104); ANION GAP 12.6 (7.0-16.0); BILIRUBIN,TOTAL 0.4 mg/dL (0.3-1.0); BUN - UREA NITROGEN 16 mg/dL (7-25); CALCIUM SERUM 9.8 mg/dL (8.6-10.3); CARBON DIOXIDE 23.6 mEq/L (21.0-31.0); CHLORIDE 108 mEq/L (98-107); GFR AFRICAN-AMERICAN > 60.0 ml/min (>90); GFR NON AFRICAN-AMERICAN > 60.0 ml/min; GLUCOSE 127 mg/dL (70-105); POTASSIUM SERUM 3.2 mEq/L (3.5-5.1); SGOT 16 U/L (13-39); SGPT/ALT 27 U/L (7-52); SODIUM SERUM 141 mEq/L (136-145); TOTAL PROTEIN,SERUM 7.9 gm/dL (6.0-8.3)
[2018-04-17] MEDS ORDERED: Potassium Chloride Elixir 20 mEq /15 mL UDC ONE (12:23)
[2018-04-17] MEDS ORDERED: Potassium Chloride Elixir 20 mEq /15 mL UDC PO ONE (12:24)
--- NOTE | 2018-04-17 12:24 | ED Physician Chart ---
ED Chief Complaint/HPI - Patient Information Date Seen:: 04/17/18 Time Seen:: 11:26 Chief Complaint:: seizure disorder History of Present Illness:: this is a 53 yo male chronically ill [facility] in need of an evaluation for the sudden onset of multiple seizures. Allergies:: Allergies Allergy/AdvReac Type Severity Reaction Status Date / Time No Known Allergies Allergy Verified 04/17/18 11:13 Vitals:: Vital Signs - 8 hr 04/17/18 11:22 Temp 99.3 F HR 109 RR 18 BP 122/80 O2 Sat % 99 Historian:: EMS, Medical Records Review:: Nurse's Note Reviewed, Old Chart Reviewed ED Review of Systems - Review of Systems General/Constitutional: No fever, No chills, No weight loss, No weakness, No diaphoresis, No edema, No loss of appetite, Other (this patient is unable to give a review of systems) Skin: No skin lesions, No rash, No bruising Head: No headache, No light-headedness Eyes: No loss of vision, No pain, No diplopia ENT: No earache, No nasal drainage, No sore throat, No tinnitus Neck: No neck pain, No swelling, No thyromegaly, No stiffness, No mass noted Cardio Vascular: No chest pain, No palpitations, No PND, No orthopnea, No edema Pulmonary: No SOB, No cough, No sputum, No wheezing GI: No nausea, No vomiting, No diarrhea, No pain, No melena, No hematochezia, No constipation, No hematemesis G/U: No dysuria, No frequency, No hematuria Musculoskeletal: No bone or joint pain, No back pain, No muscle pain Endocrine: No polyuria, No polydipsia Psychiatric: No prior psych history, No depression, No anxiety, No suicidal ideation Hematopoietic: No bruising, No lymphadenopathy Allergic/Immuno: No urticaria, No angioedema Neurological: No syncope, No focal symptoms, No weakness, No paresthesia, No headache, No seizure, No dizziness, No confusion, No vertigo ED Past Medical History - Past Medical History Obtainable: Yes Past Medical History: HTN, PUD/GERD, Seizures, Dementia, Other (cerebral palsy) Family History: None Social History: Non Smoker, No Alcohol, No Drug Use, Care Facility Surgical History: Pacemaker Psychiatricy History: Dementia Medication: Reviewed ED Physical Exam - Physical Examination General/Constitutional: Awake, Well-developed, well-nourished, Alert, No distress, GCS 15, Non-toxic appearing, Ambulatory Other Gen/Cons comments:: blind, non-verbral, with significant chorea. Head: Atraumatic Eyes: Lids, conjuctiva normal, PERRL, EOMI Other Eyes comments:: blind Skin: Nl inspection, No rash, No skin lesions, No ecchymosis, Well hydrated, No lymphadenopathy ENMT: External ears, nose nl, Nasal exam nl, Lips, teeth, gums nl Neck: Nontender, Full ROM w/o pain, No JVD, No nuchal rigidity, No bruit, No mass, No stridor Respiratory: Nl effort/Exclusion, Clear to Auscultation, No Wheeze/Rhonchi/Rales Cardio Vascular: RRR, No murmur, gallop, rubs, NL S1 S2 GI: No tenderness/rebounding/guarding, No organomegaly, No hernia, Normal BS's, Nondistended, No mass/bruits, No McBurney tenderness : No CVA tenderness Extremities: No tenderness or effusion, Full ROM, normal strength in all extremities, No edema, Normal digits & nails Neuro/Psych: Alert/oriented, DTR's symmetric, Normal sensory exam, Normal motor strength, Judgement/insight normal, Mood normal, Normal gait, No focal deficits Misc: Normal back, No paraspinal tenderness ED Labs/Radiology/EKG Results - Lab Results Results: Laboratory Tests 04/17/18 04/17/18 04/17/18 10:59 10:59 10:59 WBC 7.3 RBC 5.07 Hgb 15.3 Hct 46.1 MCV 91.0 MCH 30.2 H MCHC Differential 33.2 RDW 13.2 Plt Count 280 MPV 7.7 Neutrophils % 73.8 Lymphocytes % 13.8 L Monocytes % 9.5 Eosinophils % 2.7 Basophils % 0.2 PT 11.8 H INR 1.14 Sodium 141 Potassium 3.2 L Chloride 108 H Carbon Dioxide 23.6 Anion Gap 12.6 BUN 16 Creatinine 1.0 Est GFR ( Amer) > 60.0 Est GFR (Non-Af Amer) > 60.0 BUN/Creatinine Ratio 16.0 Glucose 127 H Calcium 9.8 Total Bilirubin 0.4 AST 16 ALT 27 Alkaline Phosphatase 73 Troponin I Total Protein 7.9 Albumin 4.3 Globulin 3.6 Albumin/Globulin Ratio 1.2 04/17/18 10:59 WBC RBC Hgb Hct MCV MCH MCHC Differential RDW Plt Count MPV Neutrophils % Lymphocytes % Monocytes % Eosinophils % Basophils % PT INR Sodium Potassium Chloride Carbon Dioxide Anion Gap BUN Creatinine Est GFR ( Amer) Est GFR (Non-Af Amer) BUN/Creatinine Ratio Glucose Calcium Total Bilirubin AST ALT Alkaline Phosphatase Troponin I 0.03 Total Protein Albumin Globulin Albumin/Globulin Ratio - Radiology Results Results: chest x-ray = nad - EKG Interpretations EKG Time:: 11:01 Rate & Rhythm: rate =100, sinus Seibert: right ED Assessment - Assessment General Assessment: seizure disorder ED Septic Shock - . Is Septic Shock (SBP<90, OR Lactate>4 mmol\L) present?: No - <6hrs of presentation: Vital Signs: Vital Signs - 8 hr 04/17/18 11:22 Temp 99.3 F HR 109 RR 18 BP 122/80 O2 Sat % 99 ED Reassessment (Disposition) - Reassessment Reassessment Condition:: Unchanged - Diagnosis Diagnosis:: seizure disorder cerebral palsy - Patient Disposition Discharge/Transfer:: Acute Care w/in this hosp Admitting Medical Physician:: David Davila Condition at Disposition:: Unchanged
[2018-04-17 15:11] VITALS: BP 115/55
[2018-04-17] MEDS ORDERED: Fleet Enema 135 mL RC PRN (19:40)
[2018-04-17] MEDS ORDERED: Magnesium Hydroxide (MOM) 30 mL UDC PO PRN (19:40)
[2018-04-17] MEDS ORDERED: Docusate Sodium 100 mg/10 mL UD PO PRN (19:40)
[2018-04-17 19:55] LABS: URINE SOURCE CATH
[2018-04-17 19:57] LABS: URINE BILIRUBIN NEGATIVE (NEGATIVE); URINE BLOOD NEGATIVE (NEGATIVE); URINE GLUCOSE (UA) NEGATIVE (NEGATIVE); URINE KETONE NEGATIVE (NEGATIVE); URINE LEUKOCYTE ESTERASE NEGATIVE (NEGATIVE); URINE NITRATE NEGATIVE (NEGATIVE); URINE PROTEIN NEGATIVE (NEGATIVE); URINE UROBILINOGEN 0.2 E.U./dL (0.2 - 1.0)
[2018-04-17 20:02] LABS: URINE CLARITY HAZY (CLEAR); URINE COLOR YELLOW; URINE MICROSCOPIC INDICATED? YES
[2018-04-17 20:03] LABS: URINE BACTERIA FEW /hpf (NONE SEEN); URINE EPITHELIAL CELLS NONE SEEN /lpf (FEW); URINE RBC NONE SEEN /hpf (0-5)
[2018-04-17] MEDS ORDERED: LEVETIRACETAM PO SCH ×2 (21:00)
[2018-04-17] MEDS: D5-0.9%NS 1,000 ML IV SCH (21:06)
[2018-04-17] MEDS: Levetiracetam 500 mg/5mL 5mL UDSyr *for ORAL USE ONLY PO SCH (21:08)
[2018-04-18] MEDS: D5-0.9%NS 1,000 ML IV SCH ×2 (08:18→20:21)
[2018-04-18] MEDS: Pantoprazole 40 mg EC Tab PO SCH (08:41)
[2018-04-18] MEDS: Multivitamin w/ Minerals Tab PO SCH (08:43)
[2018-04-18] MEDS: Levetiracetam 500 mg/5mL 5mL UDSyr *for ORAL USE ONLY PO SCH ×2 (08:43→20:22)
[2018-04-18] MEDS ORDERED: MULTIVITS CA MINERALS PO SCH (09:00)
[2018-04-18] MEDS ORDERED: ESOMEPRAZOLE MAGNESIUM 20 MG PO SCH (09:00)
[2018-04-18] MEDS ORDERED: IRON PO SCH (09:00)
[2018-04-18] MEDS ORDERED: [UNRECOGNIZED DRUG - OTHER] PO SCH (09:00)
--- NOTE | 2018-04-18 09:26 | Diagnostic Imaging Report ---
CHEST X-RAY: AP view INDICATION: Cough COMPARISON: 08/28/2017 FINDINGS: Left chest wall pacemaker is stable. Right apical pleural thickening is noted. Bibasal atelectasis is noted. No focal consolidation or effusion. Heart size is normal. Gas distended stomach is noted. The osseous structures are intact. IMPRESSION: Bibasal atelectasis. No focal consolidation identified Pacemaker noted.
--- NOTE | 2018-04-18 12:46 | Internal Medicine Prog Note ---
Internal Medicine Subjective - Subjective Service Date: 04/18/18 ([id number] [facility]) Internal Medicine Objective - Results Result Diagrams: 04/17/18 10:59 04/17/18 10:59 Recent Labs: Laboratory Last Values WBC 7.3 Th/cmm (4.8-10.8) 04/17/18 10:59 RBC 5.07 Mil/cmm (4.30-5.70) 04/17/18 10:59 Hgb 15.3 gm/dL (12-16) 04/17/18 10:59 Hct 46.1 % (41.0-60) 04/17/18 10:59 MCV 91.0 fl (80-99) 04/17/18 10:59 MCH 30.2 pg (26.0-30.0) H 04/17/18 10:59 MCHC Differential 33.2 pg (28.0-36.0) 04/17/18 10:59 RDW 13.2 % (11.5-20.0) 04/17/18 10:59 Plt Count 280 Th/cmm (150-400) 04/17/18 10:59 MPV 7.7 fl 04/17/18 10:59 Neutrophils % 73.8 % (40.0-80.0) 04/17/18 10:59 Lymphocytes % 13.8 % (20.0-50.0) L 04/17/18 10:59 Monocytes % 9.5 % (2.0-10.0) 04/17/18 10:59 Eosinophils % 2.7 % (0.0-5.0) 04/17/18 10:59 Basophils % 0.2 % (0.0-2.0) 04/17/18 10:59 PT 11.8 SECONDS (9.5-11.5) H 04/17/18 10:59 INR 1.14 (0.5-1.4) 04/17/18 10:59 Sodium 141 mEq/L (136-145) 04/17/18 10:59 Potassium 3.2 mEq/L (3.5-5.1) L 04/17/18 10:59 Chloride 108 mEq/L (98-107) H 04/17/18 10:59 Carbon Dioxide 23.6 mEq/L (21.0-31.0) 04/17/18 10:59 Anion Gap 12.6 (7.0-16.0) 04/17/18 10:59 BUN 16 mg/dL (7-25) 04/17/18 10:59 Creatinine 1.0 mg/dL (0.7-1.3) 04/17/18 10:59 Est GFR ( Amer) > 60.0 ml/min (>90) 04/17/18 10:59 Est GFR (Non-Af Amer) > 60.0 ml/min 04/17/18 10:59 BUN/Creatinine Ratio 16.0 04/17/18 10:59 Glucose 127 mg/dL (70-105) H 04/17/18 10:59 POC Glucose 75 MG/DL (70 - 105) 04/17/18 14:43 Calcium 9.8 mg/dL (8.6-10.3) 04/17/18 10:59 Total Bilirubin 0.4 mg/dL (0.3-1.0) 04/17/18 10:59 AST 16 U/L (13-39) 04/17/18 10:59 ALT 27 U/L (7-52) 04/17/18 10:59 Alkaline Phosphatase 73 U/L (34-104) 04/17/18 10:59 Troponin I 0.03 ng/mL (0.01-0.05) 04/17/18 10:59 Total Protein 7.9 gm/dL (6.0-8.3) 04/17/18 10:59 Albumin 4.3 gm/dL (4.2-5.5) 04/17/18 10:59 Globulin 3.6 gm/dL 04/17/18 10:59 Albumin/Globulin Ratio 1.2 (1.0-1.8) 04/17/18 10:59 Urine Source CATH 04/17/18 19:20 Urine Color YELLOW 04/17/18 19:20 Urine Clarity HAZY (CLEAR) 04/17/18 19:20 Urine pH 7.0 (4.6 - 8.0) 04/17/18 19:20 Ur Specific [place] 1.015 (1.005-1.030) 04/17/18 19:20 Urine Protein NEGATIVE mg/dL (NEGATIVE) 04/17/18 19:20 Urine Glucose (UA) NEGATIVE mg/dL (NEGATIVE) 04/17/18 19:20 Urine Ketones NEGATIVE mg/dL (NEGATIVE) 04/17/18 19:20 Urine Blood NEGATIVE (NEGATIVE) 04/17/18 19:20 Urine Nitrate NEGATIVE (NEGATIVE) 04/17/18 19:20 Urine Bilirubin NEGATIVE (NEGATIVE) 04/17/18 19:20 Urine Urobilinogen 0.2 E.U./dL (0.2 - 1.0) 04/17/18 19:20 Ur Leukocyte Esterase NEGATIVE (NEGATIVE) 04/17/18 19:20 Urine RBC NONE SEEN /hpf (0-5) 04/17/18 19:20 Urine WBC 2-5 /hpf (0-5) 04/17/18 19:20 Ur Epithelial Cells NONE SEEN /lpf (FEW) 04/17/18 19:20 Urine Bacteria FEW /hpf (NONE SEEN) 04/17/18 19:20 - Physical Exam Vitals and I&O: Vital Signs Temp 97.7 F 04/18/18 08:00 Pulse 77 04/18/18 08:42 Resp 18 04/18/18 08:00 BP 121/80 04/18/18 08:42 Pulse Ox 97 04/18/18 08:00 Intake & Output 04/17/18 04/18/18 04/18/18 18:59 06:59 18:59 Intake Total 100 1000 Balance 100 1000 Weight (lbs) 132 lb 132 lb Intake: Intake, IV Amount 1000 D5-0.9%Ns 1,000 ml @ 100 1000 mls/hr IV .Q10H [facility] Rx#: [id number] Oral 100 Other: # Voids 2 2 # Bowel Movements 1 0 Stool Characteristics Formed Formed Formed Weight Source Bedscale Bedscale Active Medications: Current Medications Acetaminophen (Tylenol) 650 mg PO Q4H PRN PRN Reason: Pain Or Fever above 101 Stop: 06/16/18 19:41 Amlodipine Besylate (Norvasc) 10 mg PO DAILY [facility] Stop: 06/17/18 08:59 Last Admin: 04/18/18 08:41 Dose: 10 mg Bisacodyl (Dulcolax 10 Mg Supp) 10 mg RC DAILY PRN PRN Reason: Constipation Stop: 06/16/18 19:39 Calcium Carbonate (Os-Isaac) 500 mg PO BID [facility] Stop: 06/17/18 08:59 Last Admin: 04/18/18 08:43 Dose: 500 mg Docusate Sodium (Colace) 100 mg PO BID PRN PRN Reason: Constipation Stop: 06/16/18 19:39 Hydralazine HCl (Apresoline) 25 mg PO TID [facility] Stop: 06/16/18 20:59 Last Admin: 04/18/18 08:42 Dose: 25 mg Dextrose/Sodium Chloride (D5-0.9%Ns) 1,000 mls @ 100 mls/hr IV .Q10H [facility] Stop: 06/16/18 19:44 Last Admin: 04/18/18 08:18 Dose: 100 mls/hr Levetiracetam (Keppra) 1,500 mg PO Q12HR [facility] Stop: 06/16/18 20:59 Last Admin: 04/18/18 08:43 Dose: 1,500 mg Lorazepam (Ativan) 1 mg IV Q4H PRN; Protocol PRN Reason: Seizure Stop: 06/16/18 19:41 Magnesium Hydroxide (Milk Of Magnesia) 30 ml PO PRN PRN PRN Reason: Constipation Stop: 06/16/18 19:39 Megestrol Acetate (Megace) 40 mg PO DAILY [facility]; Protocol Stop: 06/17/18 08:59 Last Admin: 04/18/18 08:42 Dose: 40 mg Ondansetron HCl (Zofran) 4 mg IV Q8H PRN PRN Reason: Nausea / Vomiting Stop: 06/16/18 19:41 Pantoprazole Sodium (Protonix) 40 mg PO DAILY [facility] Stop: 06/17/18 08:59 Last Admin: 04/18/18 08:41 Dose: 40 mg Sertraline HCl (Zoloft) 50 mg PO QAM [facility]; Protocol Stop: 06/17/18 08:59 Last Admin: 04/18/18 08:41 Dose: 50 mg Sodium Phosphate (Fleet Enema) 135 ml RC PRN PRN PRN Reason: Constipation Stop: 06/16/18 19:39 Topiramate (Topamax) 100 mg PO BID [facility] Stop: 06/17/18 08:59 Last Admin: 04/18/18 08:43 Dose: 100 mg Vitamin D (Vitamin D) 400 iu PO QAM [facility] Stop: 06/17/18 08:59 Last Admin: 04/18/18 08:42 Dose: 400 iu
[2018-04-18] MEDS ORDERED: Potassium Chloride 20 mEq ER Tab PO ONE (12:47)
--- NOTE | 2018-04-18 16:23 | History & Physical ---
ADMIT DATE: 04/18/2018 CHIEF COMPLAINT: Uncontrolled seizures. HISTORY OF PRESENT ILLNESS: This is a 53-year-old male who is a resident of [facility], admitted to the telemetry unit due to 1-day history of sudden onset of multiple seizures. PAST MEDICAL HISTORY: Hypertension, GERD, seizures, dementia, cerebral palsy. FAMILY HISTORY: Noncontributory. SOCIAL HISTORY: The patient is a custodial resident, requiring 24-hour nursing care. PAST SURGICAL HISTORY: Pacemaker. REVIEW OF SYSTEMS: Unable to obtain at this time due to the patient's mental status. PHYSICAL EXAMINATION: GENERAL: Well-developed, well-nourished, awake, not really interactive, no apparent distress. VITAL SIGNS: Temperature 97.7, heart rate 77, blood pressure 121/80, respiration 18, O2 97%. HEENT: Head: Normocephalic, atraumatic. NECK: Supple. No mass. LUNGS: Clear bilaterally. HEART: Regular rate and rhythm. ABDOMEN: Soft, nontender. LABORATORY DATA: WBC 7.3, H and H 15.3 and 46.1, platelet of 280. Sodium 141, potassium 3.2, chloride 108, BUN 16, creatinine 1.0. DIAGNOSTICS: The patient had a chest x-ray done and impression is bibasilar atelectasis. No focal consolidation identified. Pacemaker noted. ASSESSMENT: Uncontrolled seizures, cerebral palsy, dementia, hypertension, gastroesophageal reflux disease, pacemaker status. PLAN: The patient to be admitted to the telemetry unit. We will obtain CT of the head. We will also get Neurology consultation. IV fluids for hydration. Seizure precautions. We will initially get followup labs for tomorrow morning. Send urine for culture. We will continue to monitor this patient. JOB# [id number]
[2018-04-19 05:53] LABS: ANION GAP 14.3 (7.0-16.0); BUN - UREA NITROGEN 8 mg/dL (7-25); CALCIUM SERUM 9.6 mg/dL (8.6-10.3); CARBON DIOXIDE 19.4 mEq/L (21.0-31.0); CHLORIDE 115 mEq/L (98-107); CREATININE - SERUM 0.9 mg/dL (0.7-1.3); GFR AFRICAN-AMERICAN > 60.0 ml/min (>90); GFR NON AFRICAN-AMERICAN > 60.0 ml/min; GLUCOSE 90 mg/dL (70-105); POTASSIUM SERUM 3.7 mEq/L (3.5-5.1); SODIUM SERUM 145 mEq/L (136-145)
[2018-04-19 05:56] LABS: MEAN CORPUSCULAR HEMOGLOBIN 30.2 pg (26.0-30.0)
[2018-04-19 05:59] LABS: HEMATOCRIT 45.3 % (41.0-60); MEAN CELL VOLUME 91.1 fl (80-99); MEAN CORPUSCULAR HGB CONC 33.2 pg (28.0-36.0); MEAN PLATELET VOLUME 7.8 fl; PLATELET COUNT 133 Th/cmm (150-400); RED BLOOD COUNT 4.97 Mil/cmm (4.30-5.70); RED CELL DISTRIBUTION WIDTH 13.2 % (11.5-20.0); WHITE BLOOD COUNT 6.8 Th/cmm (4.8-10.8)
[2018-04-19] MEDS: D5-0.9%NS 1,000 ML IV SCH ×2 (06:56→14:58)
--- NOTE | 2018-04-19 07:22 | Diagnostic Imaging Report ---
Exam: CT examination of the brain HISTORY: Seizure. Total DLP equals 723 CTDI equals 39.4 Right exam 08/28/2017. Findings: Multiple contiguous thin section of the brain were obtained from the base of skull to the vertex without the administration of contrast material, the study is limited due to motion artifacts. The study demonstrates no evidence for hemorrhage midline shift or edema. There is evidence for areas of encephalomalacia and porencephaly. There is no evidence of midline shift. The bony calvarium is intact there is evidence for left ocular prosthesis. The paranasal sinuses are well aerated. IMPRESSION: Limited examination due to severe motion artifacts Area of porencephaly and encephalomalacia throughout. Essentially unchanged compatible prior examination of 08/29/2017.
[2018-04-19 07:42] LABS: EOSINOPHIL 2 % (0-5); LYMPHOCYTE 30 % (20-50); MONOCYTE 6 % (2-10); NEUTROPHILS 62 % (40-80)
[2018-04-19] MEDS: Multivitamin w/ Minerals Tab PO SCH (09:21)
[2018-04-19] MEDS: Pantoprazole 40 mg EC Tab PO SCH (09:21)
[2018-04-19] MEDS: Levetiracetam 500 mg/5mL 5mL UDSyr *for ORAL USE ONLY PO SCH ×2 (09:21→20:57)
--- NOTE | 2018-04-19 12:26 | Internal Medicine Prog Note ---
Internal Medicine Subjective - Subjective Patient seen and examined:: with staff, chart reviewed, other (no report of sz so far) Patient is:: asleep, non-verbal, non-interactive, in bed Patient Complaints of:: congestion Per staff patient has:: no adverse event, poor oral intake, agitated, confused Internal Medicine Objective - Results Result Diagrams: 04/19/18 05:45 04/19/18 04:40 Recent Labs: Laboratory Last Values WBC 6.8 Th/cmm (4.8-10.8) 04/19/18 05:45 RBC 4.97 Mil/cmm (4.30-5.70) 04/19/18 05:45 Hgb 15.0 gm/dL (12-16) 04/19/18 05:45 Hct 45.3 % (41.0-60) 04/19/18 05:45 MCV 91.1 fl (80-99) 04/19/18 05:45 MCH 30.2 pg (26.0-30.0) H 04/19/18 05:45 MCHC Differential 33.2 pg (28.0-36.0) 04/19/18 05:45 RDW 13.2 % (11.5-20.0) 04/19/18 05:45 Plt Count 133 Th/cmm (150-400) L 04/19/18 05:45 MPV 7.8 fl 04/19/18 05:45 Add Manual Diff YES 04/19/18 05:45 Neutrophils % 73.8 % (40.0-80.0) 04/17/18 10:59 Lymphocytes % 13.8 % (20.0-50.0) L 04/17/18 10:59 Monocytes % 9.5 % (2.0-10.0) 04/17/18 10:59 Eosinophils % 2.7 % (0.0-5.0) 04/17/18 10:59 Basophils % 0.2 % (0.0-2.0) 04/17/18 10:59 Neutrophils (Manual) 62 % (40-80) 04/19/18 05:45 Lymphocytes 30 % (20-50) 04/19/18 05:45 Monocytes 6 % (2-10) 04/19/18 05:45 Eosinophils 2 % (0-5) 04/19/18 05:45 PT 11.8 SECONDS (9.5-11.5) H 04/17/18 10:59 INR 1.14 (0.5-1.4) 04/17/18 10:59 Sodium 145 mEq/L (136-145) 04/19/18 04:40 Potassium 3.7 mEq/L (3.5-5.1) 04/19/18 04:40 Chloride 115 mEq/L (98-107) H 04/19/18 04:40 Carbon Dioxide 19.4 mEq/L (21.0-31.0) L 04/19/18 04:40 Anion Gap 14.3 (7.0-16.0) 04/19/18 04:40 BUN 8 mg/dL (7-25) 04/19/18 04:40 Creatinine 0.9 mg/dL (0.7-1.3) 04/19/18 04:40 Est GFR ( Amer) > 60.0 ml/min (>90) 04/19/18 04:40 Est GFR (Non-Af Amer) > 60.0 ml/min 04/19/18 04:40 BUN/Creatinine Ratio 8.9 04/19/18 04:40 Glucose 90 mg/dL (70-105) 04/19/18 04:40 POC Glucose 75 MG/DL (70 - 105) 04/17/18 14:43 Calcium 9.6 mg/dL (8.6-10.3) 04/19/18 04:40 Total Bilirubin 0.4 mg/dL (0.3-1.0) 04/17/18 10:59 AST 16 U/L (13-39) 04/17/18 10:59 ALT 27 U/L (7-52) 04/17/18 10:59 Alkaline Phosphatase 73 U/L (34-104) 04/17/18 10:59 Troponin I 0.03 ng/mL (0.01-0.05) 04/17/18 10:59 Total Protein 7.9 gm/dL (6.0-8.3) 04/17/18 10:59 Albumin 4.3 gm/dL (4.2-5.5) 04/17/18 10:59 Globulin 3.6 gm/dL 04/17/18 10:59 Albumin/Globulin Ratio 1.2 (1.0-1.8) 04/17/18 10:59 Urine Source CATH 04/17/18 19:20 Urine Color YELLOW 04/17/18 19:20 Urine Clarity HAZY (CLEAR) 04/17/18 19:20 Urine pH 7.0 (4.6 - 8.0) 04/17/18 19:20 Ur Specific [place] 1.015 (1.005-1.030) 04/17/18 19:20 Urine Protein NEGATIVE mg/dL (NEGATIVE) 04/17/18 19:20 Urine Glucose (UA) NEGATIVE mg/dL (NEGATIVE) 04/17/18 19:20 Urine Ketones NEGATIVE mg/dL (NEGATIVE) 04/17/18 19:20 Urine Blood NEGATIVE (NEGATIVE) 04/17/18 19:20 Urine Nitrate NEGATIVE (NEGATIVE) 04/17/18 19:20 Urine Bilirubin NEGATIVE (NEGATIVE) 04/17/18 19:20 Urine Urobilinogen 0.2 E.U./dL (0.2 - 1.0) 04/17/18 19:20 Ur Leukocyte Esterase NEGATIVE (NEGATIVE) 04/17/18 19:20 Urine RBC NONE SEEN /hpf (0-5) 04/17/18 19:20 Urine WBC 2-5 /hpf (0-5) 04/17/18 19:20 Ur Epithelial Cells NONE SEEN /lpf (FEW) 04/17/18 19:20 Urine Bacteria FEW /hpf (NONE SEEN) 04/17/18 19:20 - Physical Exam Vitals and I&O: Vital Signs Temp 97.4 F 04/19/18 11:47 Pulse 70 04/19/18 11:47 Resp 18 04/19/18 11:47 BP 120/67 04/19/18 11:47 Pulse Ox 100 04/19/18 11:47 Intake & Output 04/18/18 04/19/18 04/19/18 18:59 06:59 18:59 Intake Total 1999 1100 Balance 1999 1100 Weight (lbs) 59.874 kg 59.874 kg Intake: Intake, IV Amount 1999 1000 D5-0.9%Ns 1,000 ml @ 100 2000 1000 mls/hr IV .Q10H ANNA Rx#: [id number] Oral 100 Other: # Voids 3 2 # Bowel Movements 0 0 Stool Characteristics Formed Formed Formed Weight Source Patient stated Bedscale Active Medications: Current Medications Acetaminophen (Tylenol) 650 mg PO Q4H PRN PRN Reason: Pain Or Fever above 101 Stop: 06/16/18 19:41 Amlodipine Besylate (Norvasc) 10 mg PO DAILY [facility] Stop: 06/17/18 08:59 Last Admin: 04/19/18 09:21 Dose: 10 mg Bisacodyl (Dulcolax 10 Mg Supp) 10 mg RC DAILY PRN PRN Reason: Constipation Stop: 06/16/18 19:39 Calcium Carbonate (Os-Isaac) 500 mg PO BID [facility] Stop: 06/17/18 08:59 Last Admin: 04/19/18 09:22 Dose: 500 mg Docusate Sodium (Colace) 100 mg PO BID PRN PRN Reason: Constipation Stop: 06/16/18 19:39 Hydralazine HCl (Apresoline) 25 mg PO TID [facility] Stop: 06/16/18 20:59 Last Admin: 04/19/18 09:22 Dose: 25 mg Levetiracetam (Keppra) 1,500 mg PO Q12HR [facility] Stop: 06/16/18 20:59 Last Admin: 04/19/18 09:21 Dose: 1,500 mg Lorazepam (Ativan) 1 mg IV Q4H PRN; Protocol PRN Reason: Seizure Stop: 06/16/18 19:41 Magnesium Hydroxide (Milk Of Magnesia) 30 ml PO PRN PRN PRN Reason: Constipation Stop: 06/16/18 19:39 Megestrol Acetate (Megace) 40 mg PO DAILY [facility]; Protocol Stop: 06/17/18 08:59 Last Admin: 04/19/18 09:21 Dose: 40 mg Ondansetron HCl (Zofran) 4 mg IV Q8H PRN PRN Reason: Nausea / Vomiting Stop: 06/16/18 19:41 Pantoprazole Sodium (Protonix) 40 mg PO DAILY [facility] Stop: 06/17/18 08:59 Last Admin: 04/19/18 09:21 Dose: 40 mg Sertraline HCl (Zoloft) 50 mg PO QAM [facility]; Protocol Stop: 06/17/18 08:59 Last Admin: 04/19/18 09:21 Dose: 50 mg Sodium Phosphate (Fleet Enema) 135 ml RC PRN PRN PRN Reason: Constipation Stop: 06/16/18 19:39 Topiramate (Topamax) 100 mg PO BID [facility] Stop: 06/17/18 08:59 Last Admin: 04/19/18 09:21 Dose: 100 mg Vitamin D (Vitamin D) 400 iu PO QAM [facility] Stop: 06/17/18 08:59 Last Admin: 04/19/18 09:21 Dose: 400 iu General: demented, bilateral temporal wasting, appears older HEENT: NC/AT, PERRLA Neck: Supple, No JVD, No LAD Lungs: CTAB Cardiovascular: RRR, Normal S1, Normal S2, without murmur Abdomen: soft, non-tender, globular, positive bowel sound Extremities: excoriation, contracture Neurological: no change, unable to follow command Internal Medicine Assmt/Plan - Assessment Assessment: ASSESSMENT: Uncontrolled seizures, cerebral palsy, dementia, hypertension, gastroesophageal reflux disease, pacemaker status. - Plan Plan: PLAN: The patient to be admitted to the telemetry unit. We will obtain CT of the head. We will also get Neurology consultation. IV fluids for hydration. Seizure precautions. We will initially get followup labs for tomorrow morning. Send urine for culture. We will continue to monitor this patient.
[2018-04-19 22:32] LABS: URINE SOURCE CLEAN C
[2018-04-19 22:35] LABS: URINE BILIRUBIN NEGATIVE (NEGATIVE); URINE BLOOD NEGATIVE (NEGATIVE); URINE GLUCOSE (UA) NEGATIVE (NEGATIVE); URINE KETONE NEGATIVE (NEGATIVE); URINE LEUKOCYTE ESTERASE NEGATIVE (NEGATIVE); URINE NITRATE NEGATIVE (NEGATIVE); URINE PH 6.5 (4.6 - 8.0); URINE PROTEIN NEGATIVE (NEGATIVE)
[2018-04-19 22:53] LABS: URINE COLOR YELLOW
[2018-04-19 22:54] LABS: URINE CLARITY CLEAR (CLEAR); URINE MICROSCOPIC INDICATED? NO
[2018-04-20] MEDS: D5-0.9%NS 1,000 ML IV SCH (05:03)
[2018-04-20 06:44] LABS: % EOSINOPHILS 3.2 % (0.0-5.0); % LYMPHOCYTES 26.3 % (20.0-50.0); % MONOCYTES 10.3 % (2.0-10.0); % NEUTROPHILS 60.2 % (40.0-80.0); EOSINOPHILE ABSOLUTE 0.2 Th/cmm (0.1-0.4); HEMATOCRIT 45.4 % (41.0-60); LYMPHOCYTE ABSOLUTE 1.8 Th/cmm (1.5-3.0); MEAN CELL VOLUME 90.5 fl (80-99); MEAN CORPUSCULAR HEMOGLOBIN 29.9 pg (26.0-30.0); MEAN CORPUSCULAR HGB CONC 33.1 pg (28.0-36.0); MEAN PLATELET VOLUME 8.2 fl; MONOCYTE ABSOLUTE 0.7 Th/cmm (0.3-1.0); NEUTROPHILE ABSOLUTE 4.1 Th/cmm (1.8-8.0); PLATELET COUNT 262 Th/cmm (150-400); RED BLOOD COUNT 5.02 Mil/cmm (4.30-5.70); RED CELL DISTRIBUTION WIDTH 13.2 % (11.5-20.0); WHITE BLOOD COUNT 6.8 Th/cmm (4.8-10.8)
[2018-04-20 07:30] LABS: ANION GAP 11.8 (7.0-16.0); BUN - UREA NITROGEN 12 mg/dL (7-25); CALCIUM SERUM 9.5 mg/dL (8.6-10.3); CARBON DIOXIDE 21.8 mEq/L (21.0-31.0); CHLORIDE 114 mEq/L (98-107); GFR AFRICAN-AMERICAN > 60.0 ml/min (>90); GFR NON AFRICAN-AMERICAN > 60.0 ml/min; GLUCOSE 84 mg/dL (70-105); POTASSIUM SERUM 3.6 mEq/L (3.5-5.1); SODIUM SERUM 144 mEq/L (136-145)
[2018-04-20] MEDS: Levetiracetam 500 mg/5mL 5mL UDSyr *for ORAL USE ONLY PO SCH (09:34)
[2018-04-20] MEDS: Multivitamin w/ Minerals Tab PO SCH (09:35)
[2018-04-20] MEDS: Pantoprazole 40 mg EC Tab PO SCH (09:36)
--- NOTE | 2018-04-20 14:23 | Discharge Summary ---
DATE OF DISCHARGE: 04/20/2018 CHIEF COMPLAINT: Uncontrolled seizure. FINAL DIAGNOSES: 1. Uncontrolled seizure, which is improved. 2. Cerebral palsy. 3. Dementia. 4. Hypertension. 5. Gastroesophageal reflux disease. 6. Status post pacemaker. 7. Cardiac arrhythmia. HISTORY: This is a 60-year-old -[place] male with multiple medical problems with hypertension, GERD, seizure and cerebral palsy, admitted from nursing facility secondary to 1-day history of seizure, ____. The patient was finally admitted to the ER. PHYSICAL EXAMINATION: VITAL SIGNS: Blood pressure 123/70, respirations 18, pulse 60, temperature 96.8. GENERAL: This is an elderly male, appears his age. NECK: Supple. No mass. LUNGS: Equal breath sounds, few rhonchi. HEART: Regular rhythm without appreciable murmur. ABDOMEN: Soft, globular. EXTREMITIES: Positive excoriation. NEUROLOGIC: Limited. HOSPITAL COURSE: The patient was admitted to telemetry. Continue oxygen and bronchodilator treatment. The patient was given IV antiepileptic medications and his antiepileptic medications were adjusted. The patient was referred to Dr. Mark for Neurology. Head CT was nonrevealing. Workup has been nonrevealing. No focus of infection. The patient cleared for discharge. CONDITION ON DISCHARGE: Fair. DISCHARGE INSTRUCTIONS: The patient to continue with current antiepileptic medication and close followup with his neurologist. JOB# [id number]
--- NOTE | 2018-04-21 11:49 | Consultation ---
DATE OF CONSULTATION: 04/20/2018 NEUROLOGY CONSULT HISTORY OF PRESENT ILLNESS: A 53-year-old male admitted with seizure. No seizure over the last 24 hours. The patient with history of seizures. The patient has cerebral palsy, mental retardation. Essentially nonverbal. He can swallow, arms are flexed, ____ legs are flexed, limited movement. Essentially no cornea on the left eye. On the right eye, also I see opacity, so I do not know what his vision is like on the right side. PAST MEDICAL HISTORY: Hypertension, cerebral palsy, mental retardation, seizures, GERD. MEDICATIONS: As per reconciliation. SURGERIES: Pacemaker. REVIEW OF SYSTEMS: Unable to get. PHYSICAL EXAMINATION: VITAL SIGNS: Temperature 98.2, blood pressure 120/76, pulse is 74. NECK: Supple. No neck bruits. HEART: Normal heart sounds. LUNGS: Clear. NEUROLOGIC: He is lying in bed. He kind of moves his arms a little bit. Moves his head to and fro. I do not get any response verbally. Some withdrawal of the lower extremity, but they are mainly flexed. Reflex is -1. 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 No acute process is noted. ASSESSMENT: 1. Seizure. 2. Mental retardation. 3. Cerebral palsy. 4. History of hypertension. 5. Pacemaker. 6. Gastroesophageal reflux disease. TREATMENT: The patient is currently on medication for the seizures, Keppra 1500 q. 12 hours and lorazepam p.r.n. The patient also is on Zoloft. The patient also is on Topamax 100 mg b.i.d. Continue with present medication. JOB# [id number]
== END 2018-04-20 17:25 | DRG 53 ==
LOC: ER 10:12 → TELE 13:00
PROVIDERS: ADMIT Internal Medicine; ATTEND Internal Medicine
DX: G40.909 Epilepsy, unspecified, not intractable, without status epilepticus (principal); R53.2 Functional quadriplegia; F03.90 Unspecified dementia, unspecified severity, without behavioral disturbance, psychotic disturbance, mood disturbance, and anxiety; G80.9 Cerebral palsy, unspecified; I10 Essential (primary) hypertension; K21.9 Gastro-esophageal reflux disease without esophagitis; I49.9 Cardiac arrhythmia, unspecified; F79 Unspecified intellectual disabilities; E87.6 Hypokalemia; Z95.0 Presence of cardiac pacemaker; Z87.11 Personal history of peptic ulcer disease
CPT/HCPCS: 36415-UA; 70450-TC; 71045-TC; 80048-TC; 80053-TC; 80299-90; 81001-TC; 81003-TC; 82140-TC; 82948-90; 83735-TC; 84484-TC; 85007-TC; 85025-TC; 85610-TC; 87086-90; 93005; J2060; J7042; Z7610